=== PATIENT | male | born 1970 | race Caucasian/White ===

== ENCOUNTER 2019-04-26 04:19 | Emergency (ER) | payer SELFPAY ==
[~2019-04-26] VITALS: Ht 170.2 cm; Wt 78.0 kg
[2019-04-26] MEDS ORDERED: IBUPROFEN 600MG TABLET PO ONE (06:45)
[2019-04-26 06:55] VITALS: BP 164/74
== END 2019-04-26 06:56 | disposition home or self-care (01) ==
LOC: ER 04:19
DX: B02.9 Zoster without complications (principal); M79.641 Pain in right hand; R21 Rash and other nonspecific skin eruption
CPT/HCPCS: 99283